=== PATIENT | male | born 1950 | race Caucasian/White ===

== ENCOUNTER → 2021-05-17 03:21 | Outpatient (CLI) | payer MEDICARE, OTHER, SELFPAY ==
[2021-05-22 22:39] LABS: SARS-CoV-2 RNA PCR Negative
== END ==
PROVIDERS: PCP Family Medicine Adolescent Medicine; Visit Provider Family Medicine Adolescent Medicine
DX: J02.9 Acute pharyngitis, unspecified (principal); Z20.822 Contact with and (suspected) exposure to COVID-19
CPT/HCPCS: C9803; U0003; U0005

== ENCOUNTER 2024-03-04 12:30 | Outpatient (RCR) | payer MEDICARE, OTHER, SELFPAY ==
--- NOTE | 2023-12-15 12:33 | OPREHPOC ---
Outpatient Therapy Plan of Care This is a Multidisciplinary Plan of Care that may contain components documented by all disciplines (PT, OT, and ST.) PT Problem 1 PT Problem #1 Knowledge Deficit PT Goal 1 Goal [place] with HEP Target Visit 4 PT Problem 2 PT Problem #2 Impaired Balance PT Goal 1 Goal Improve Tinetti score by 6 points to reduce gross fall risk Target Visit 10 PT Problem 3 PT Problem #3 Impaired Strength PT Goal 1 Goal Improve demarcus hip flexion strength to 4+/ 5to improve foot clearance with gait Target Visit 10 PT Goal 2 Goal Improve demarcus hip abduction strength to 4/5 to improve lateral stability with gait and transfers Target Visit 10 PT Problem 4 PT Problem #4 Impaired Gait PT Goal 1 Goal Demonstrate ability to ambulate 150' with no LOB or need for rest break for home and short distance community ambulation Target Visit 10 PT Problem 5 PT Problem #5 Impaired Functional Mobil PT Goal 1 Goal Demonstrate ability to lift 5# to shoulder level on R side for improved functional lifting Target Visit 10
--- NOTE | 2023-12-15 12:33 | PTOPEVAL1 ---
Assessment and note entered by Darin Lebron, PT Evaluation Information Assessment Status Evaluation ICD-10 Condition Codes (PT) Cervicalgia M54.2 Onset 09/29/23 Subjective Information Reports that he had a cervical fusion 09/29/23 ( fusion at C2-C6). He has been having demarcus hand weakness and right leg weakness. Right hand feel like it is weaker at this time. He uses a scooter for long distance mobility and a cane for short distance. He is currently sleeping in a recliner and gets about an hour of sleep at a time. He is right handed. Denies recent falls but did have one about a month ago. States that he has had some problem with right foot clearance. He had a lot of success with first surgery but this has been much more slow progress. Also has some low back pain and leg edema. Denies pain in the neck since surgery. Having difficulty lifting his right arm. Currently transitioning from home health. Reported Pain Level Pain Score 0: Self Report Assessment PT Clinical Summary Patient presents to clinic with absence of neck pain. Reports that overall he is noticing a lot of weakness in the right shoulder and right leg. Weakness in demarcus hands as well with difficulty gripping. Patient at this time presents with gross deconditioning and weakness attributing to functional decline. 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 Plan of Care Interventions Gait Training,Manual Therapy,Neuro Re-education, Therapeutic Activities,Therapeutic Exercise PT Services Indicated Yes Treatment Frequency and 2x/week for 10 visits Duration These treatments will address the objective and functional deficits as defined above. The patient will be advanced safely and appropriately in order for the patient to progress towards his/her prior level of function. Additional exercises will be introduced and as well as a comprehensive home exercise program upon discharge, if needed, ?to ensure carryover of functional gains achieved in the clinic. This treatment plan has been reviewed and agreement upon by the patient.
--- NOTE | 2024-01-05 11:32 | PCPTNOTE ---
Called and canceled, reason unknown. AKS
--- NOTE | 2024-02-05 13:34 | OPREHPOC ---
Outpatient Therapy Plan of Care This is a Multidisciplinary Plan of Care that may contain components documented by all disciplines (PT, OT, and ST.) PT Problem 1 PT Problem #1 Knowledge Deficit PT Goal 1 Goal / Goal Update [place] with HEP Target Visit 4 PT Goal 2 Goal / Goal Update 02-05-24 progress goal met continue to progress education and HEP Target Visit 20 PT Problem 2 PT Problem #2 Impaired Balance PT Goal 1 Goal / Goal Update Improve Tinetti score by 6 points to reduce gross fall risk Target Visit 10 Progress Met PT Goal 2 Goal / Goal Update 02-05-24 progress goal met; NEW GOALS: 1* Tinetti balance/gait score of 28/28 Target Visit 20 PT Problem 3 PT Problem #3 Impaired Strength PT Goal 1 Goal / Goal Update Improve demarcus hip flexion strength to 4+/ 5to improve foot clearance with gait Target Visit 10 Progress Met PT Goal 2 Goal / Goal Update Improve demarcus hip abduction strength to 4/5 to improve lateral stability with gait and transfers --------- 02-05-24 progress goal for hip flexion met; abduction not met--continue towards Target Visit 20 PT Problem 4 PT Problem #4 Impaired Gait PT Goal 1 Goal / Goal Update Demonstrate ability to ambulate 150' with no LOB or need for rest break for home and short distance community ambulation Target Visit 10 Progress Met PT Goal 2 Goal / Goal Update 02-05-24 progress goal met NEW GOAL: 1* maximum walking distance with cane of 425' 2* 2 minute walking test distance of 250' Target Visit 20 PT Problem 5 PT Problem #5 Impaired Functional Mobility P
--- NOTE | 2024-02-05 13:34 | PTOPPROG ---
Assessment and note entered by Patience Alvarenga, PT Progress Report Assessment Status Progress ICD-10 Condition Codes (PT) Cervicalgia M54.2 Onset 09/29/23 Subjective Information feel like getting stronger and more mobile; when walking a longer way, use the wheeled walker, otherwise use a cane; have not had any falls; have been doing the exercise at home; saw last week and pleased with how the surgery has done; not been walking too much lately due to SOB and hot, humid weather; want to continue therapy; PAIN: in R shoulder and elbow 10; have tingling in both hands, less in the morning when first wake up; does not have any neck pain Assessment PT Clinical Summary Ed has received a total of 10 PT sessions. Compared to the initial evaluation: Tinetti balance/gait score from 13 to ; increase R and L LE strength; increase R shoulder strength; is using the cane with walking- for maximum distance of 300' indep with one standing, short rest break due to SOB; He continues to use the wheeled walker or motorized scooter for distances. The goals were partially met. Continue PT treatment to decrease cervical and shoulder pain, increase UE and LE strength, to improve mobility skills and safety with education for HEP. Plan of Care Interventions Electrical Stimulation,Gait Training,Hot Pack/Cold Pack,Manual Therapy,Neuro Re-education,Patient/ Caregiver Education,Therapeutic Activities, Therapeutic Exercise,Other Other Interventions IASTM PT Services Indicated Yes Treatment Frequency and 2x/wk for 10 visits Duration These treatments will address the objective and functional deficits as defined above. The patient will be advanced safely and appropriately in order for the patient to progress towards his/her prior level of function. Additional exercises will be introduced and as well as a comprehensive home exercise program upon discharge, if needed, ?to ensure carryover of functional gains achieved in the clinic. This treatment plan has been reviewed and agreement upon by the patient.
--- NOTE | 2024-02-23 13:24 | PCPTNOTE ---
Patient called and cancelled this date due to COPD exacerbation.
--- NOTE | 2024-02-27 13:52 | PCPTNOTE ---
Pt no showed visit today, call was made with no answer and LM for pt of next appt date and time.
--- NOTE | 2024-03-09 14:00 | PCPTNOTE ---
Pt cancelled appt today due to illness.
--- NOTE | 2024-03-11 07:42 | PCPTNOTE ---
This treatment is being continued on visit number [id number] . Please see documentation on both accounts to view progress. Completed interventions, outcomes, and problems have been marked as Inactive to facilitate the copying of the Care plan routine for recurring accounts.
== END 2024-03-10 13:59 | disposition home or self-care (01) ==
LOC: ANHPT 12:30
PROVIDERS: PCP Family Medicine Adolescent Medicine; Visit Provider Neurological Surgery
DX: M54.2 Cervicalgia (principal)
CPT/HCPCS: 97014; 97110; 97140; 97161; 97530; G0283

== ENCOUNTER 2024-04-01 10:30 | Outpatient (RCR) | payer MEDICARE, OTHER, SELFPAY ==
--- NOTE | 2024-03-11 07:39 | PCPTNOTE ---
This treatment is being continued on visit number [id number]__. Please see documentation on both accounts to view progress. Completed interventions, outcomes, and problems have been marked as Inactive to facilitate the copying of the Care plan routine for recurring accounts.
--- NOTE | 2024-03-22 15:04 | PTOPPROG ---
Assessment and note entered by Darin Lebron, PT Evaluation Information Assessment Status Progress ICD-10 Condition Codes (PT) Cervicalgia M54.2 Onset 09/29/23 Subjective Information Reports that he feels his back has been his biggest inhibitor at this point. Reports that his hands are still numb and they put him in a bad mood almost constantly. Feels like the leg has moments where it feels really good and he will go out and walk. He has been trying to walk in the house without his cane as often as he can. Follows up with Neuromuscular MD on 03/25/24. 04/02/24 is Lymphedema MD, [facility] is on 04/08/24. 04/22/24 with with surgeon office. He has not discussed the lower back issues with any physicians and he really feels like this is what needs to be addressed medically at this point. Assessment PT Clinical Summary Patient making some functional progress noted in improved use of Paulo UE in strength and cervical ROM. Functionally he has been limited by back pain but has been motivated in therapy to improve activity and ambulation distance as evidenced by objective measures this date. 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 Plan of Care Interventions Therapeutic Exercise,Other,Patient/Caregiver Education,Manual Therapy,Neuro Re-education, Therapeutic Activities,Hot Pack/Cold Pack, Electrical Stimulation,Gait Training Other Interventions IAST[facility] PT Services Indicated Yes Treatment Frequency and 1-2x/week for 8 visits Duration These treatments will address the objective and functional deficits as defined above. The patient will be advanced safely and appropriately in order for the patient to progress towards his/her prior level of function. Additional exercises will be introduced and as well as a comprehensive home exercise program upon discharge, if needed, ?to ensure carryover of functional gains achieved in the clinic. This treatment plan has been reviewed and agreement upon by the patient.
--- NOTE | 2024-04-05 11:11 | PCPTNOTE ---
Pt canceled due to throwing back out .
--- NOTE | 2024-04-08 08:37 | PCPTNOTE ---
Pt canecled due to illness today.
--- NOTE | 2024-04-12 08:55 | PCPTNOTE ---
Pt's canceled due to pt hospitalized with COPD issues.
--- NOTE | 2024-04-22 15:22 | PCPTNOTE ---
Patient cancelled today's progress note secondary to illness.
== END 2024-06-09 23:59 | disposition home or self-care (01) ==
LOC: ANHPT 10:30
PROVIDERS: PCP Family Medicine Adolescent Medicine; Visit Provider Neurological Surgery
DX: M54.2 Cervicalgia (principal); M47.12 Other spondylosis with myelopathy, cervical region
CPT/HCPCS: 97110; 97116; 97140

== ENCOUNTER 2024-10-28 12:30 | Outpatient (RCR) | payer MEDICARE, OTHER, SELFPAY ==
--- NOTE | 2024-09-22 11:58 | OPREHPOC ---
Outpatient Therapy Plan of Care This is a Multidisciplinary Plan of Care that may contain components documented by all disciplines (PT, OT, and ST.) PT Problem 1 PT Problem #1 Knowledge Deficit PT Goal 1 Goal / Goal Update *independent with HEP Target Visit 10 PT Problem 2 PT Problem #2 Impaired Strength PT Goal 1 Goal / Goal Update 1*increase strength of R and L LE to gross 4/5, to improve mobility skills 2* with 2 minute walking test, no drag of R toe Target Visit 10 PT Problem 3 PT Problem #3 Impaired Functional Mobility PT Goal 1 Goal / Goal Update 1* pt transfer sit/stand without use of UE x 5 reps 2* 5 reps sit/stand time of 18 seconds 3* Tinetti balance/gait score of 22/28 to decrease risk for falls and improve mobility 4* 2 minute walking test distance of 325' with rollator 5* up/down 4 steps with one hand railing, independent and safe Target Visit 10
--- NOTE | 2024-09-22 11:59 | PTOPEVAL1 ---
Assessment and note entered by Patience Alvarenga, PT Evaluation Information Assessment Status Evaluation ICD-10 Condition Codes (PT) Pain in low back M54.50,Pain in right knee M25.561 ,Pain in left knee M25.562,Abnormalities of gait and mobility R26.9,Weakness R53.1 Onset June 2024 Subjective Information multiple hospitalizations with pneumonia, breathing issues/COPD; had [facility] PT and has been discharged not had any falls using oxygen PRN at 2L/min with exertion activity: use quad cane in home and rollator for distances; home with ; assists with moving leg to get into tub to seat; have ramp into home; back door entrance has 3 steps with 1 hand railing with someone with him; standing is limited due to back pain and weakness; have exercises from previous PT, not do regularly ; does all home tasks; Reported Pain Level Pain Score Self Report Additional Pain Score Comments knee pain: past week 3-09/09 back pain: past week -12/09 use home stim unit for back pain; have not used for R knee, instructed on pad placement meds for pain Assessment PT Clinical Summary Ed has the diagnosis of muscle weakness, bilateral knee pain, low back pain. He has had multiple hospitalizations since June, with increased weakness of legs and decreased mobility--problems on stairs, in/out tub and walking. He has not had any falls. is present during eval, supportive to pt and does all home tasks. LE functional scale self rating of 89% limitation in activity level. He has had PT here in the past. Medical history includes: chronic back pain, bilateral knee pain, R hip pain, lymphedema bilateral LE, cervical fusion and back surgery. With the evaluation: decreased strength of LE's; sit/stand transfer with use of 1 UE; 5 reps sit/ stand time of 24 seconds; Tinetti balance/gait score of 13/28= high risk for falls and 2 minute walking test distane of 270' with rollator and oxygen at 2L/min. Skilled PT services are indicated for therapeutic exercises to increase LE strength, gait and balance skills, with education for HEP and mobility safety. Monitor pain and respiratory status with increased activity level. Plan of Care Interventions Gait Training,Neuro Re-education,Patient/Caregiver Education,Therapeutic Activities,Therapeutic Exercise PT Services Indicated Yes Treatment Frequency and 2x/wk for 10 visits Duration These treatments will address the objective and functional deficits as defined above. The patient will be advanced safely and appropriately in order for the patient to progress towards his/her prior level of function. Additional exercises will be introduced and as well as a comprehensive home exercise program upon discharge, if needed, ?to ensure carryover of functional gains achieved in the clinic. This treatment plan has been reviewed and agreement upon by the patient.
--- NOTE | 2024-10-28 13:14 | OPREHPOC ---
Outpatient Therapy Plan of Care This is a Multidisciplinary Plan of Care that may contain components documented by all disciplines (PT, OT, and ST.) PT Problem 1 PT Problem #1 Knowledge Deficit PT Goal 1 Goal / Goal Update *independent with HEP 10-28-24 d/c goal met Target Visit 10 Progress Met PT Problem 2 PT Problem #2 Impaired Strength PT Goal 1 Goal / Goal Update 1*increase strength of R and L LE to gross 4/5, to improve mobility skills 2* with 2 minute walking test, no drag of R toe 10-28-24 d/c goals met Target Visit 10 Progress Met PT Problem 3 PT Problem #3 Impaired Functional Mobility PT Goal 1 Goal / Goal Update 1* pt transfer sit/stand without use of UE x 5 reps 2* 5 reps sit/stand time of 18 seconds 3* Tinetti balance/gait score of 22/28 to decrease risk for falls and improve mobility 4* 2 minute walking test distance of 325' with rollator 5* up/down 4 steps with one hand railing, independent and safe 10-28-24 d/c goals met except #2, improved to 19 seconds Target Visit 10 Progress Partially Met
--- NOTE | 2024-10-28 13:14 | PTOPDC ---
Assessment and note entered by Patience Alvarenga, PT Assessment Status Discharge ICD-10 Condition Codes (PT) Pain in low back M54.50,Pain in right knee M25.561 ,Pain in left knee M25.562,Abnormalities of gait and mobility R26.9,Weakness R53.1 Onset June 2024 Subjective Information R leg is stronger, walking better; using the cane in the house and wheeled walker in community; have been doing the exercises at home; have been doing more walking when going out and to dr appts; have not been using the wheelchair lately for distances; have not used the motorized scooter at all lately, but feels like he needs to due to breathing issues. have not been able to go to his basement for his painting. Reported Pain Level Pain Score 4,2: Self Report back and R knee Assessment PT Clinical Summary Ed has received 10 PT sessions. He has improved in all areas: 2 minute walking test distance with wheeled walker from 270' to 340'; Tinetti balance/gait score from 13 to 22/28; 5 reps sit/stand with use of 1 UE from 24 to 19 seconds; increase strength of R and L LE to 4/5; no toe drag R with walking; on 12 steps with one hand railing, independent; education completed for HEP and safety with mobility. The goals were achieved, except 5 reps sit/stand time Discharge PT. He is to continue with HEP and walking. Plan of Care PT Services Indicated No
== END 2024-10-29 13:36 | disposition home or self-care (01) ==
LOC: ANHPT 12:30
PROVIDERS: PCP Family Medicine Adolescent Medicine; Visit Provider Family Medicine Adolescent Medicine
DX: M17.0 Bilateral primary osteoarthritis of knee (principal); M54.50 Low back pain, unspecified; M62.81 Muscle weakness (generalized)
CPT/HCPCS: 97110; 97116; 97140; 97161; 97530